=== PATIENT | male | born 1965 | race African-American/Black ===

== ENCOUNTER → 2024-07-31 08:32 | Outpatient (CLI) | payer OTHER, SELFPAY ==
--- NOTE | 2024-07-31 | DI.RAD.S_ITS ---
PROCEDURE: XR LUMBAR SPINE 2-3V INDICATIONS: back pain TECHNIQUE: 3 views of the lumbar spine were acquired. COMPARISON: None. FINDINGS: Bones: 5 [id number] vertebrae are present. There is normal bony alignment. No vertebral body compression fractures. No suspicious bony lesions. Mild disc height loss at all levels. Spinal stimulator present. Facet arthrosis L4 through S1. Soft tissues: Overlying bowel gas pattern is normal. No suspicious soft tissue calcifications. IMPRESSION: Mild, multilevel degenerative disc disease and lower lumbar facet arthrosis. Dictated by: Familia Fierro M.D. on 07/31/2024 at 11:54 Approved by: Familia Fierro M.D. on 07/31/2024 at 11:54
== END ==
LOC: RAD 08:34
PROVIDERS: Referring Provider Chiropractor; Visit Provider Chiropractor
DX: M47.816 Spondylosis without myelopathy or radiculopathy, lumbar region (principal); M47.817 Spondylosis without myelopathy or radiculopathy, lumbosacral region; M51.360 Other intervertebral disc degeneration, lumbar region with discogenic back pain only; M51.370 Other intervertebral disc degeneration, lumbosacral region with discogenic back pain only; M54.9 Dorsalgia, unspecified; Z96.82 Presence of neurostimulator
CPT/HCPCS: 72100